=== PATIENT | female | born 1960 | race Caucasian/White ===

== ENCOUNTER 2020-07-13 10:50 | Outpatient (CLI) | payer BC ==
[~2020-07-13] VITALS: Ht 165.1 cm; Wt 72.7 kg
[2020-07-13 10:48] VITALS: BP 141/84
[2020-07-13] MEDS ORDERED: EPINEPHrine INJECTION 1 MG/ML AMP IM PRN (11:00)
[2020-07-13] MEDS ORDERED: BAMLANIVIMAB (NON FORM) 700 MG in NS (IVPB) 100 ML IV ONE (11:00)
[2020-07-13] MEDS ORDERED: diphenhydrAMINE 50 MG/ML INJ (BENADRYL) IV PRN (11:00)
[2020-07-13 12:22] VITALS: BP 126/82
== END 2020-07-13 12:51 | disposition home or self-care (01) ==
LOC: INFUSION 10:50
PROVIDERS: ATTEND Family Medicine
DX: Z23 Encounter for immunization (principal); U07.1 COVID-19